=== PATIENT | male | born 1950 | race Caucasian/White ===

== ENCOUNTER 2017-03-16 07:16 | Observation (INO) | payer SELFPAY ==
[~2017-03-16] VITALS: Ht 185.4 cm; Wt 115.0 kg
[2017-03-16 07:22] VITALS: BP 179/88; PULSE 81; RESP 22; TEMP 98.3
[2017-03-16] MEDS ORDERED: ASPI81CH CHEW (07:34)
[2017-03-16] MEDS ORDERED: blood pressure pill (07:34)
[2017-03-16] MEDS ORDERED: PRED5TAB PO (07:34)
[2017-03-16] MEDS ORDERED: cholesterol pill (07:34)
[2017-03-16] MEDS ORDERED: ACETAMINOPHEN/CODEINE 300 MG/30 MG TAB PO ONE (07:45)
[2017-03-16] MEDS ORDERED: ASPIRIN 325 MG TAB PO ONE (07:45)
[2017-03-16] MEDS ORDERED: SODIUM CHLORIDE 0.9% FLUSH 10 ML FLUSH IVF PRN (07:45)
--- NOTE | 2017-03-16 07:46 | PD ---
HPI Chief Complaint: Musculoskeletal Complaint Time Seen by Provider: 07:24 Travel History International Travel<30 days: No Contact w/Intl Traveler<30days: No Traveled to known affect area: No History of Present Illness HPI This is a 66-year-old male patient with a past medical history of hypertension hypercholesterolemia NC 2 as post stent placement for status post stent placement 4 last stent placed 4 years ago and also a history of arthritis who presents with a complaint of a one-day history of right shoulder pain. Patient is traveling there woke up with the right shoulder pain. Patient denies recent injury although he admits to lifting luggage that weight is approximately 40 pound. Patient has been taken Advil without improvement in pain. Patient denies associated shortness of breath lightheadedness dizziness nausea vomiting. Pain level 8 out of 10 and constant . PFSH Past Medical History Hx Anticoagulant Therapy: Yes Cardiac Catheterization: Yes Cardiovascular Problems: Yes Coronary Artery Disease: Yes Hypertension: Yes Musculoskeletal: Yes (ankle injury and surgery) Social History Alcohol Use: Yes Tobacco Use: No Substance Use: No Allergies-Medications (Allergen,Severity, Reaction): Coded Allergies: No Known Allergies (Unverified , 03/16/17) Reported Meds & Prescriptions Reported Meds & Active Scripts Active Reported [cholesterol pill] DAILY Aspirin 81 Mg Chew 81 Mg CHEW DAILY Prednisone 5 Mg Tab 5 Mg PO DAILY [blood pressure pill] DAILY Review of Systems ROS Limitations: Clinical Condition General / Constitutional: No: Fever, Chills, Weight Gain, Weight Loss, Other Eyes: No: Diploplia, Blurred Vision, Photophobia, Drainage, Redness, Foreign Body Sensation, Pain, Tearing, Blind Spots, Visual changes, Blindness, Other HENT: No: Headaches, Vertigo, Lightheadedness, Sore Throat, Rhinitis, Rhinorrhea, Congestion, Nosebleed, Neck Stiffness, Neck Pain, Masses, Gingival Bleeding, Dental Difficulties, Ear Discharge, Earache, Other Cardiovascular: No: Chest Pain or Discomfort, Palpitations, Irregular Rhythm, Tachycardia, Diaphoresis, Syncope, Dyspnea on exertion, Varicosities, Edema, Cyanosis, Varicosities, Phlebitis, Claudication, Other Respiratory: No: Cough, Shortness of Breath, Wheezing, Sneezing, Orthopnea, Hemoptysis, Stridor, Night Sweats, Pleuritic Pain, Other Gastrointestinal: No: Nausea, Vomiting, Diarrhea, Abdominal Pain, Hematemesis, Hematochezia, Constipation, Changes in Bowel Habits, Indigestion, Dysphagia, Loss of Appetite, Other Genitourinary: No: Urgency, Frequency, Dysuria, Nocturia, Hematuria, Decreased Urinary Output, Oliguria, Hesitancy, Dribbling, Incontinence, Pelvic Pain, Flank Pain, Dyspareunia, Discharge, Dysmenorrhea, Menorrhagia, Metorrhagia, Vaginal Bleeding, Other Musculoskeletal: Positive: Limited ROM, Pain, No: Myalgias, Arthralgias, Weakness, Cramping, Edema, Atrophy, Other Skin: No Rash, No Itching, No Dryness, No Lumps, No Hives, No Change in Pigmentation, No Change in nails, No Alopecia, No Lesions, No Breast Lumps, No Breast Tenderness, No Breast Swelling, No Other Neurologic: No: Weakness, Dizziness, Syncope, Focal Abnormalities, Coordination Problem, Tremor, Ataxia, Headache, Change in Mentation, Slurred Speech, Paresthesia, Incontinence, Seizures, Sensory Disturbance, Other Psychiatric: No: Anxiety, Depression, Suicidal Ideations, Disorder of Thought, Mood Disorder, Substance Abuse, Homicidal Ideation, Other Endocrine: No: Heat Intolerance, Cold Intolerance, Polyuria, Polydipsia, Other Hematologic/Lymphatic: No: Easy Bruising, Lymph Node Enlargement, Other Physical Exam Exam Limitations: Clinical Condition Narrative GENERAL: 66-year-old male in mild distress SKIN: Focused skin assessment warm/dry.no lesions no cyanosis no erythema HEAD: Atraumatic. Normocephalic. EYES: Pupils equal and round and reactive . No scleral icterus. No injection or drainage. ENT: No nasal bleeding or discharge. Mucous membranes pink and moist. NECK: Trachea midline. No JVD. CARDIOVASCULAR: S1-S2 appreciated. PMI displaced laterally Regular rate and rhythm. No murmur appreciated. Pulses normal throughout. Chest wall nontender RESPIRATORY: No accessory muscle use. Clear to auscultation. Breath sounds equal bilaterally. GASTROINTESTINAL: Abdomen soft, non-tender, nondistended. Hepatic and splenic margins not palpable. Bowel sounds normal. No peritoneal signs. MUSCULOSKELETAL: Decreased range of motion of the right shoulder in all ROM, particularly abduction limitation only to 90 , increase tenderness of right shoulder with all range of motion. Palpable tenderness in the glenohumeral region of the right shoulder. No shoulder asymmetry. no crepitus and no obvious bony deformity NEUROLOGICAL: Awake and alert and oriented 3.. No obvious cranial nerve deficits. Motor and sensory exam grossly within normal limits. Normal speech. No meningeal signs. PSYCHIATRIC: Appropriate mood and affect; insight and judgment normal. No suicidal or homicidal ideation. Data Data Last Documented VS Vital Signs Date Time Temp Pulse Resp B/P Pulse Ox O2 Delivery O2 Flow Rate FiO2 03/16/17 08:49 68 20 145/78 03/16/17 07:51 98 03/16/17 07:51 Nasal Cannula 2 03/16/17 07:22 98.3 Orders Electrocardiogram (03/16/17 07:31) Basic Metabolic Panel (Bmp) (03/16/17 07:31) Ckmb (Isoenzyme) Profile (03/16/17 07:31) Complete Blood Count With Diff (03/16/17 07:31) Magnesium (Mg) (03/16/17 07:31) Prothrombin Time / Inr (Pt) (03/16/17 07:31) Act Partial Throm Time (Ptt) (03/16/17 07:31) Troponin I (03/16/17 07:31) Ecg Monitoring (03/16/17 07:31) Bilateral Bp Monitoring (03/16/17 07:31) Iv Access Insert/Monitor (03/16/17 07:31) Oximetry (03/16/17 07:31) Oxygen Administration (03/16/17 07:31) Sodium Chloride 0.9% Flush (Ns Flush) (03/16/17 07:45) Shoulder, Complete (>2vws) (03/16/17 ) Acetamin-Codeine 300-30 Mg (Tylenol-Code (03/16/17 07:45) Aspirin (Aspirin) (03/16/17 07:45) Chest, Pa & Lat (03/16/17 ) Support Splint (03/16/17 08:37) ^ Other Nursing Orders (03/16/17 08:37) CKMB (03/16/17 07:40) CKMB% (03/16/17 07:40) Admit Order (Ed Use Only) (03/16/17 08:45) Labs Laboratory Tests Test 03/16/17 07:40 White Blood Count 11.4 TH/MM3 Red Blood Count 4.55 MIL/MM3 Hemoglobin 14.9 GM/DL Hematocrit 44.2 % Mean Corpuscular Volume 97.1 FL Mean Corpuscular Hemoglobin 32.8 PG Mean Corpuscular Hemoglobin 33.7 % Concent Red Cell Distribution Width 13.3 % Platelet Count 282 TH/MM3 Mean Platelet Volume 9.6 FL Neutrophils (%) (Auto) 70.9 % Lymphocytes (%) (Auto) 18.0 % Monocytes (%) (Auto) 10.0 % Eosinophils (%) (Auto) 0.6 % Basophils (%) (Auto) 0.5 % Neutrophils # (Auto) 8.1 TH/MM3 Lymphocytes # (Auto) 2.1 TH/MM3 Monocytes # (Auto) 1.1 TH/MM3 Eosinophils # (Auto) 0.1 TH/MM3 Basophils # (Auto) 0.1 TH/MM3 CBC Comment DIFF FINAL Differential Comment Prothrombin Time 10.1 SEC Prothromb Time International 0.9 RATIO Ratio Activated Partial 24.0 SEC Thromboplast Time Sodium Level 141 MEQ/L Potassium Level 4.1 MEQ/L Chloride Level 106 MEQ/L Carbon Dioxide Level 28.3 MEQ/L Anion Gap 7 MEQ/L Blood Urea Nitrogen 20 MG/DL Creatinine 0.73 MG/DL Estimat Glomerular Filtration 108 ML/MIN Rate Random Glucose 82 MG/DL Calcium Level 8.5 MG/DL Magnesium Level 1.9 MG/DL Total Creatine Kinase 194 U/L Troponin I 0.02 NG/ML [facility] Medical Decision Making Medical Screen Exam Complete: Yes Emergency Medical Condition: Yes Medical Record Reviewed: Yes Interpretation(s) EKG normal sinus rhythm rate Q waves in the inferior and anteriorly LVH and no acute ST changes Differential Diagnosis Differential diagnosis musculoskeletal shoulder pain atypical presentation for acute coronary syndrome tendinitis bursitis rotator cuf injury Narrative Course 66-year-old male patient with a past medical history of NC 2 is post splint placement 4 presents to the ER with right shoulder pain that woke her from sleep. Patient denies recent injury troponins were negative EKG shows old Q waves in the anterior and inferior leads no acute ST changes chest x-ray shows right basilar atelectasis now cardiomegaly right shoulder shows increase in the distance between the distal clavicle and humeral head rotator cuff injury is suspected but in light of patient's extensive history of cardiac disease and multiple NC that presented atypically in the past the plan is to admit to the chest pain center to trend the troponin levels and to determine if the patient requires us stress test today or if the stress test can be scheduled as an outpatient. Patient is traveling from [place] and does not have his current medications . Vitals are stable pain was controlled with Tylenol No. 3. One aspirin was given 325 mg. Plan discussed with patient and with at the bedside and both parties verbalized understanding of the plan. Arm sling applied to right shoulder. Diagnosis Primary Impression: Right shoulder pain Additional Impressions: suspected rotator cuff injury History of NC (myocardial infarction) Admitting Information Admitting Physician Requests: Observation Dwight Mccormack MD Mar 16, 2017 07:46
[2017-03-16 07:51] VITALS: O2SAT 98
[2017-03-16 08:04] VITALS: BP 152/65; PULSE 58; RESP 20
[2017-03-16 08:13] LABS: AUTOMATED NEUTROPHIL # 8.1 TH/MM3 (1.8-7.7); BASOPHIL # 0.1 TH/MM3 (0-0.2); BASOPHIL % 0.5 % (0.0-2.0); EOSINOPHIL # 0.1 TH/MM3 (0-0.4); EOSINOPHIL % 0.6 % (0.0-4.0); HEMATOCRIT 44.2 % (39.0-51.0); HEMO FLAGS DIFF FINAL; LYMPHOCYTE # 2.1 TH/MM3 (1.0-4.8); MEAN CELL VOLUME 97.1 FL (80.0-100.0); MEAN CORPUSCULAR HEMOGLOBIN 32.8 PG (27.0-34.0); MEAN CORPUSCULAR HGB CONC 33.7 % (32.0-36.0); NEUT % 70.9 % (16.0-70.0); PLATELET COUNT 282 TH/MM3 (150-450); RED BLOOD COUNT 4.55 MIL/MM3 (4.50-5.90); RED CELL DISTRIBUTION WIDTH 13.3 % (11.6-17.2); WHITE BLOOD COUNT 11.4 TH/MM3 (4.0-11.0)
[2017-03-16 08:14] LABS: INTERNATIONAL NORMALIZED RATIO 0.9 RATIO; PROTHROMBIN TIME - PATIENT 10.1 SEC (9.8-11.6)
[2017-03-16 08:37] LABS: ANION GAP 7 MEQ/L (5-15); BICARBONATE 28.3 MEQ/L (21.0-32.0); BLOOD UREA NITROGEN 20 MG/DL (7-18); CHLORIDE 106 MEQ/L (98-107); GLOMERULAR FILTRATION RATE 108 ML/MIN (>89); MAGNESIUM 1.9 MG/DL (1.5-2.5); POTASSIUM 4.1 MEQ/L (3.5-5.1); SODIUM (NA) 141 MEQ/L (136-145)
[2017-03-16 08:41] LABS: CREATINE KINASE 194 U/L (39-308)
[2017-03-16 08:49] VITALS: BP 145/78; PULSE 68; RESP 20
[2017-03-16 08:58] LABS: CKMB 3.8 NG/ML (0.5-3.6)
--- NOTE | 2017-03-16 09:13 | RADRPT ---
EXAM DATE/TIME: 03/16/2017 08:13 [facility] COMPARISON: No previous studies available for comparison. INDICATIONS : Chest discomfort; right shoulder pain today. MEDICAL HISTORY : Hypertension. Coronary artery disease. SURGICAL HISTORY : Cardiac cath. ENCOUNTER: Initial ACUITY: 1 day PAIN SCORE: 0/10 LOCATION: Bilateral chest FINDINGS: PA and lateral views of the chest demonstrate the lungs to be symmetrically aerated without evidence of mass, infiltrate or effusion. The cardiomediastinal contours are unremarkable. Degenerative agosto es in the spine.. CONCLUSION: No acute disease. Finn Reyes MD on March 16, 2017 at 9:10 Board Certified Radiologist. This report was verified electronically.
--- NOTE | 2017-03-16 09:18 | RADRPT ---
EXAM DATE/TIME: 03/16/2017 08:16 [facility] COMPARISON: No previous studies available for comparison. INDICATIONS : Right shoulder pain; no known injury or trauma. MEDICAL HISTORY : Hypertension. Coronary artery disease. SURGICAL HISTORY : Cardiac cath. ENCOUNTER: Initial ACUITY: 1 day PAIN SCORE: 9/10 LOCATION: Right shoulder. FINDINGS: Multiple view examination of the right shoulder demonstrates no evidence of fracture or dislocation. Apgw-ls-yqbmgoyr arthropathy is identified of the glenohumeral joint. There is joint space narrowing with mild subchondral sclerosis and marginal spurring along the glenoid rim. Calcific density is identified overlying the neck of the glenoid fossa which may or present an osteoc hondroma. There is also soft tissue calcification along the superolateral margin the humeral head. No other soft tissue abnormalities noted. CONCLUSION: 1. Tkyk-sq-fmcspldn arthropathy of the glenohumeral joint. 2. Calcified structure overlying the glenoid fossa which may represent an osteochondroma. 3. Soft tissue calcification along the superolateral margin of the glenohumeral joint which may or pr esent calcific tendinitis or bursitis. 4. No evidence of acute fracture or dislocation. Danny Harding MD on March 16, 2017 at 9:12 Board Certified Radiologist. This report was verified electronically.
[2017-03-16] MEDS ORDERED: ACETAMINOPHEN 500 MG CPLT PO PRN (09:30)
[2017-03-16] MEDS ORDERED: NITROGLYCERIN 0.4 MG SL 25 TABS/BTL SL PRN (09:30)
[2017-03-16] MEDS ORDERED: ONDANSETRON HCL 4 MG/2 ML VIAL IV PRN (09:30)
[2017-03-16 10:20] VITALS: PULSE 69
--- NOTE | 2017-03-16 10:20 | HHI.HP ---
HPI Primary Care Physician Non-Staff Chief Complaint Right shoulder pain History of Present Illness 66-year-old male with past medical history including coronary artery disease, hypertension, hyperlipidemia, and arthritis presents to emergency room for further evaluation of right shoulder pain. Onset yesterday upon awakening. Location right shoulder. Radiation to right arm. Pain has been constant. No associated symptoms of nausea, shortness of breath, or diaphoresis. Precipitating factors include movement of right arm. Relieving factors include mobilization of the right arm. Recent fall approx 3-4 days ago, falling onto right arm and shoulder. No chest pain or pressure. Review of Systems General: No fatigue,weakness, fever, chills, recent illness, or change in appetite. He is currently on vacation, scheduled to return to [place] Monday. HEENT: No DUMONT, no vision changes, no nasal congestion or drainage, no dysphasia CV: No CP, pressure, palpitations, intermittent leg pain. Compliant with medication, takes statin and BP meds daily at bedtime. With prior MIs patient presented atypically. Denied any chest discomfort or symptoms when diagnosed other than "lightheadedness and nausea." RESP: No SOB, cough, wheeze, or recent URI GI: No nausea, vomiting, bowel changes, diarrhea, constipation. : No dysuria, urgency, frequency EXT: No lower leg edema, no paraesthesias MS: As stated above. Right shoulder pain reproduced with abduction and adduction. Slight decrease right shoulder with abduction. No numbness, tingling, or weakness. Currently taking steroid therapy for arthritis. States he has 10 days left of prescription, originally prescribed for 60 days. NEURO: No difficulty with balance, LOC, motor/sensory deficits PSYCH: No anxiety, depression. 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 SKIN: No rashes, no concerning lesions Past Family Social History Allergies: Coded Allergies: No Known Allergies (Unverified , 03/16/17) Past Medical History CAD, 4 cardiac stents, hypertension, hyperlipidemia, arthritis Past Surgical History Left ankle surgery Reported Medications Active Reported [cholesterol pill] DAILY Aspirin 81 Mg Chew 81 Mg CHEW DAILY Prednisone 5 Mg Tab 5 Mg PO DAILY [blood pressure pill] DAILY Active Ordered Medications Current Medications Medications (Trade) Dose Ordered Sig/Dinah Route Start Time Stop Time Status Last Admin (Tylenol) 500 mg Q4H PRN PO 03/16/17 09:30 (Zofran Inj) 4 mg Q6H PRN IV 03/16/17 09:30 (Nitrostat Sl) 0.4 mg Q5M PRN SL 03/16/17 09:30 (Aspirin) 325 mg DAILY PO 03/17/17 09:00 Family History Noncontributory for early onset cardiovascular disease Social History Known coronary artery disease, hypertension, and hyperlipidemia. No known diabetes. Quit smoking tobacco in 2007 prior to quitting smoke 2 packs/daily. Endorses alcohol use daily and occasional marijuana use. Recently retired. Endorses an active lifestyle. Past cardiac testing No recent stress testing. Most recent nuclear scan approximately 2 years ago. 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 Follows with cardiology every 6 months next appointment scheduled for April. 2007-cardiac catheterization 2 or 3 stents placed at that time. Patient remembers feeling lightheaded while at work, he laid down for a short amount of time. Upon standing his coworkers told him he was philippe in color and called EMS. Later that evening he had a cardiac catheterization with either 2 or 3 stents placed. Denied any chest discomfort and only symptom dizziness and nausea. 2011-cardiac catheterization Events around this cardiac catheterization began after a left ankle fracture repair. States prior to being discharged he "felt funny and the next thing he knew I was in [employer]. " He does not remember how many stents placed at that time, stating "maybe 1-3 stents." Again he did not have any chest discomfort or symptoms prior to catheterization. 2012 cardiac catheterization remembers having an additional cardiac catheterization, although does not remember how many stents were placed or if any. Physical Exam Vital Signs Vital Signs Date Time Temp Pulse Resp B/P Pulse Ox O2 Delivery O2 Flow Rate FiO2 03/16/17 08:49 68 20 145/78 03/16/17 08:04 58 20 152/65 03/16/17 07:51 98 03/16/17 07:51 Nasal Cannula 2 03/16/17 07:22 98.3 81 22 179/88 Room Air Physical Exam GENERAL: Alert WN, WD, NAD, pleasant, male HEAD: NC, AT EYES: Sclera clear, conjunctiva without injection, pupils equal and round ENT: Mucous membranes pink and moist NECK: Supple, no masses, trachea midline CV: RRR, without murmur, rub, gallop, no JVD, S1-S2 no S3-S4. No carotid bruits. RESP: Clear lungs throughout bilateral, no crackles, wheeze, rhonchi, symmetrical chest rise, nonlabored, able to speak in full sentences ABD: Soft, NT, ND, no masses, positive bowel tones, obese EXT: Pulses +24, +1 pitting lower extremity edema MS: Pain reproduced with palpation and passive range of motion. Normal tone 4 extremities, no obvious deformities, decrease range of motion to right shoulder with abduction. NEURO: CN II through CN XII grossly intact, motor strength 5/5, gait WNL PSYCH: A+O 3, pleasant affect, appropriate speech, appropriate mood and affect , insight and judgment SKIN: Normal turgor, normal texture, no lesions, no rashes, brisk cap refill, even hair distribution, bruise noted in right auxiliary and right elbow Laboratory Laboratory Tests Test 03/16/17 07:40 White Blood Count 11.4 Red Blood Count 4.55 Hemoglobin 14.9 Hematocrit 44.2 Mean Corpuscular Volume 97.1 Mean Corpuscular Hemoglobin 32.8 Mean Corpuscular Hemoglobin 33.7 Concent Red Cell Distribution Width 13.3 Platelet Count 282 Mean Platelet Volume 9.6 Neutrophils (%) (Auto) 70.9 Lymphocytes (%) (Auto) 18.0 Monocytes (%) (Auto) 10.0 Eosinophils (%) (Auto) 0.6 Basophils (%) (Auto) 0.5 Neutrophils # (Auto) 8.1 Lymphocytes # (Auto) 2.1 Monocytes # (Auto) 1.1 Eosinophils # (Auto) 0.1 Basophils # (Auto) 0.1 CBC Comment DIFF FINAL Differential Comment Prothrombin Time 10.1 Prothromb Time International 0.9 Ratio Activated Partial 24.0 Thromboplast Time Sodium Level 141 Potassium Level 4.1 Chloride Level 106 Carbon Dioxide Level 28.3 Anion Gap 7 Blood Urea Nitrogen 20 Creatinine 0.73 Estimat Glomerular Filtration 108 Rate Random Glucose 82 Calcium Level 8.5 Magnesium Level 1.9 Total Creatine Kinase 194 Creatine Kinase MB 3.8 Troponin I 0.02 Result Diagram: 03/16/17 0740 03/16/17 0740 Imaging Last Impressions Shoulder X-Ray 03/16/17 0000 Signed Impressions: Service Date/Time: February 08:16 - CONCLUSION: 1. Wnsb-qw-bxuobqrx arthropathy of the glenohumeral joint. 2. Calcified structure overlying the glenoid fossa which may represent an osteochondroma. 3. Soft tissue calcification along the superolateral margin of the glenohumeral joint which may or present calcific tendinitis or bursitis. 4. No evidence of acute fracture or dislocation. Danny Harding MD Chest X-Ray 03/16/17 0000 Signed Impressions: Service Date/Time: February 08:13 - CONCLUSION: No acute disease. Finn Reyes MD Course EKG First EKG-Normal sinus rhythm, first degree AVB, Q waves inferior and V1 and V3 leads, suggesting past myocardial infarction Second EKG-Normal sinus rhythm, first degree AVB, inferior Q waves Assessment and Plan Assessment and Plan #1 Atypical chest painadmitted to chest pain center. Ruled out with 3 sets of EKGs and cardiac enzymes. Will be seen and evaluated by Dr. Jed Paz. Discussed in length with patient may likely will complete a chemical stress test later this afternoon due to multiple risk factors and past myocardial infarctions presented atypically. Patient is agreeable to plan of care if stress test deemed appropriate by brush cleaner, although pain clearly appears to be musculoskeletal pain. #2 History of coronary artery diseasecontinue aspirin, statin therapy #3 Arthritiscontinue prednisone 5mg daily #4 Hypertensioncontinue anti-hypertensive medication once home medication reconciled. #5 Right shoulder bursitis-pain medication provided in ER, discussed in length importance of continuing to use shoulder although not lifting above head or lifting heavy objects. Arm Sling placed in ER, patient instructed not to use long-term as risk of developing a frozen shoulder. Instructed to take over the counter NSAIDs for a few days, apply heating pad to affected area, and to follow up with PCP in pain persists. Beena Young Mar 16, 2017 10:20
[2017-03-16] MEDS ORDERED: predniSONE 5 MG TAB PO SCH (11:00)
[2017-03-16 11:21] LABS: CREATINE KINASE 174 U/L (39-308)
[2017-03-16 11:36] LABS: CKMB 3.3 NG/ML (0.5-3.6)
[2017-03-16 11:58] VITALS: BP 188/101; PULSE 76; RESP 20; TEMP 97.7; O2SAT 95
[2017-03-16] MEDS ORDERED: COZA50TA PO (12:13)
[2017-03-16] MEDS ORDERED: ATOR40TA16 PO (12:13)
[2017-03-16] MEDS ORDERED: PLAV75TA29 PO (12:13)
[2017-03-16] MEDS ORDERED: amLODIPine BESYLATE 5 MG TAB PO ONE (12:15)
--- NOTE | 2017-03-16 12:42 | HHI.DCPOC ---
Discharge Care Plan Diagnosis: (1) Bursitis (2) Hx of coronary artery disease Goals to Promote Your Health * To prevent worsening of your condition and complications * To maintain your health at the optimal level Directions to Meet Your Goals Take your medications as prescribed Follow your dietary instruction Follow activity as directed Keep your appointments as scheduled Take your immunizations and boosters as scheduled If your symptoms worsen call your PCP, if no PCP go to Urgent Care Center or Emergency Room Smoking is Dangerous to Your Health. Avoid second hand smoke Call the 24-hour hour crisis hotline for domestic abuse at Beena Young Mar 16, 2017 12:42
[2017-03-16] MEDS ORDERED: LOSARTAN 50 MG TAB PO SCH (12:45)
[2017-03-16] MEDS ORDERED: CLOPIDOGREL 75 MG TAB PO SCH (12:45)
[2017-03-16] MEDS ORDERED: SODIUM CHLORIDE 0.9% FLUSH 10 ML FLUSH IV FLUSH SCH (21:00)
[2017-03-17] MEDS ORDERED: ASPIRIN 325 MG TAB PO SCH (09:00)
--- NOTE | 2017-03-17 09:34 | EKG ---
Date Performed: 03/16/2017 Time Performed: 10:54:39 PTAGE: 66 years EKG: Sinus rhythm WITH FIRST DEGREE AV BLOCK MODERATE VOLTAGE CRITERIA FOR LVH, CONSIDER NORMAL VARIANT INFERIOR MYOCA RDIAL INFARCTION ABNORMAL ECG NO PREVIOUS TRACING DOCTOR: Jed Paz Interpretating Date/Time 03/17/2017 09:32:23
--- NOTE | 2017-03-17 09:34 | EKG ---
Date Performed: 03/16/2017 Time Performed: 07:48:09 PTAGE: 66 years EKG: Sinus rhythm WITH FIRST DEGREE AV BLOCK MODERATE VOLTAGE CRITERIA FOR LVH, CONSIDER NORMAL VARIANT POSSIBLE ANTER IOR MYOCARDIAL INFARCTION INFERIOR MYOCARDIAL INFARCTION ABNORMAL ECG NO PREVIOUS TRACING DOCTOR: Jed Paz Interpretating Date/Time 03/17/2017 09:32:29
== END 2017-03-16 14:34 | disposition home or self-care (01) ==
LOC: NEPE 07:16 → NEDA 08:49 → NEPGCP 09:38
PROVIDERS: ADMIT Internal Medicine Cardiovascular Disease; ATTEND Internal Medicine Cardiovascular Disease
DX: R07.89 Other chest pain (principal); I25.10 Atherosclerotic heart disease of native coronary artery without angina pectoris; M19.90 Unspecified osteoarthritis, unspecified site; I10 Essential (primary) hypertension; M75.51 Bursitis of right shoulder; M25.511 Pain in right shoulder; E78.5 Hyperlipidemia, unspecified; F12.90 Cannabis use, unspecified, uncomplicated; R42 Dizziness and giddiness; M12.9 Arthropathy, unspecified; I44.0 Atrioventricular block, first degree; I25.2 Old myocardial infarction; Z95.5 Presence of coronary angioplasty implant and graft; Z79.82 Long term (current) use of aspirin; Z79.01 Long term (current) use of anticoagulants; R94.31 Abnormal electrocardiogram [ECG] [EKG]
CPT/HCPCS: 71020; 73030; 80048; 82550; 82552; 83735; 84484; 85025; 85610; 85730; 93005; 99285; G0378; J7512